=== PATIENT | female | born 1995 | race Caucasian/White ===

== ENCOUNTER 2021-07-16 08:22 | Outpatient (CLI) | payer BC, SELFPAY ==
--- NOTE | 2021-07-16 08:49 | XR_ITS ---
WS: [id number] KUB, AP view, 07/16/2021 Clinical Data: CHRONIC CONSTIPATION/ABD BLOATING/ABDOMINAL PAIN Comparison: None. Findings: No abnormal intraabdominal masses or calcifications are seen. There is no dilatated small bowel or ev idence of obstruction. There is an IUD in the region of the uterus. There is fecal material throughout the colon. XR/XR KUB [id number] Impression: Negative KUB.
== END 2021-07-16 08:23 | disposition home or self-care (01) ==
PROVIDERS: PCP Electrodiagnostic Medicine; Visit Provider Electrodiagnostic Medicine
DX: K59.00 Constipation, unspecified (principal); R14.0 Abdominal distension (gaseous)
CPT/HCPCS: 74018

== ENCOUNTER 2024-03-08 03:21 | Observation (INO) | payer OTHER, SELFPAY ==
[2024-03-08] VITALS (13 sets, daily range): BP systolic 105–139; BP diastolic 70–106; PULSE 54–97; RESP 15–20; TEMP 36.4–36.6; O2SAT 91–98; BMI 28.4
--- NOTE | 2024-03-08 03:43 | CTR_ITS ---
PROCEDURE INFORMATION: Exam: CT Abdomen And Pelvis With Contrast Exam date and time: 03/08/2024 5:02 AM Age: 29 years old Clinical indication: Abdominal pain; Localized; Right lower quadrant (rlq) TECHNIQUE: Imaging protocol: Computed tomography of the abdomen and pelvis with contrast. Radiation optimization: All CT scans at this facility use at least one of these dose optimization techniques: automated exposure control; mA and/or kV adjustment per patient size (includes targeted exams where dose is matched to clinical indication); or iterative reconstruction. Contrast material: OMNI 350; Contrast volume: 100 ml; Contrast route: INTRAVENOUS (IV); COMPARISON: CR XR KUB [id number] 07/16/2021 9:06 AM RADIATION DOSE METRICS: Total DLP (mGy-cm): 579.95 FINDINGS: Lungs: Lung bases are clear as visualized. Liver: Normal. No mass. Gallbladder and biliary ducts: Normal. No calcified stones. No ductal dilation. Pancreas: Low-density focus is noted involving the head of the pancreas measuring 7.6 mm in size. This may represent a pancreatic cyst however, this is somewhat unusual in a patient of this age and nonemergent MRI with without IV contrast pancreatic protocol would be recommended. Spleen: Normal. No splenomegaly. Adrenal glands: Normal. No mass. Kidneys and ureters: The right kidney is normal in appearance. The left kidney is atrophic with cortical scarring. No hydronephrosis is appreciated. No renal calculi are identified. Stomach and bowel: There are air-fluid levels involving minimally distended loops of small bowel within the pelvis. This is a nonspecific finding but can be seen with an ileus/enteritis. The cecum is somewhat mobile being within the left midabdomen. The cecum is somewhat distended with air. However, the remainder of the colon is also mildly distended with air and fecal material. While the colon does narrow slightly as the cecum crosses the midline to the left, no definite oral sign or twisting of the mesentery is appreciated. Appendix: No evidence of appendicitis. Intraperitoneal space: Unremarkable. No free air. No significant fluid collection. Vasculature: Unremarkable. No abdominal aortic aneurysm. Lymph nodes: Unremarkable. No enlarged lymph nodes. Urinary bladder: Unremarkable as visualized. Reproductive: Unremarkable as visualized. Bones/joints: Unremarkable. No acute fracture. Soft tissues: There is a small fat filled periumbilical hernia. 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 A cecal volvulus or partial volvulus is possible. Barium enema may be of benefit for further evaluation. 2. Air-fluid levels involving minimally distended loops of small bowel within the pelvis. This is a nonspecific finding but can be seen with an ileus/enteritis. 3. Small low-density lesion involving the head of the pancreas. Please see above comments.
[2024-03-08 03:53] LABS: Basophils # 0.1 10^3/uL (0.0-0.1); Basophils % 0.7 %; Eosinophils # 0.7 10^3/uL (0.0-0.8); Hematocrit 46.3 % (36-47); Lymphocytes # 2.9 10^3/uL (0.8-4.8); Mean Corpuscular HGB Conc 33.3 g/dL (30-55); Mean Corpuscular Volume 87.2 fl (85-98); Mean Platelet Volume 9.8 fL (7.4-10.4); Monocytes # 0.7 10^3/uL (0.2-0.9); Monocytes % 9.1 %; Neutrophils # 3.08 10^3/uL (1.8-7.7); Neutrophils % 41.9 %; Nucleated Red Blood Cells % 0 %; Platelet Count 259 10^3/cmm (157-399); Red Blood Count 5.31 10^6/uL (3.85-5.65); Red Cell Distribution Width 11.9 % (12.1-15.1); White Blood Count 7.34 10^3/uL (3.29-11.43)
[2024-03-08] MEDS: HYDROmorphone 1 mg/mL INJ 1 mL 0.5 MG IVP ×2 (04:00→05:50)
[2024-03-08] MEDS: ondansetron 2 mg/ML SDV 2 mL 4 MG IVP (04:09)
[2024-03-08 04:13] LABS: Alanine Aminotransferase 16 U/L (0-33); Albumin Level 4.1 g/dL (3.5-5.2); Alkaline Phosphatase 107 U/L (35-105); Anion Gap 16.4 (5-19); Aspartate Amino Transferase 16 U/L (0-32); Blood Urea Nitrogen 11 mg/dL (6-20); Calcium 8.7 mg/dL (8.5-10.5); Carbon Dioxide 22 mmol/L (22-29); Chloride 103 mmol/L (98-107); Creatinine Clr Calc Pharmacy 94.1141; Globulin 2.8 g/dL (1.3-4.6); Glomerular Filtration Rate 73.5 mL/min (90-130); Glucose 101 mg/dL (65-115); Lipase 41 U/L (13-60); Osmolality Calculated 286 mOsm/kg (285-295); Potassium 3.4 mmol/L (3.5-5.1); Sodium 138 mmol/L (136-145); Total Bilirubin 0.3 mg/dL (0.15-1.2); Total Protein 6.9 g/dL (6.6-8.7)
--- NOTE | 2024-03-08 04:28 | PC.NURSE ---
Urine specimen delayed at this time due to patient stating that she cannot produce urine specimen, and asking for water. Patient was educated that she needs to remain NPO until test results can come back, and that if unable to produce specimen, she may require straight cath. Patient verbalized understanding and stated that she would try once again to produce specimen.
[2024-03-08 04:35] LABS: HCG, Serum Qual Negative (Negative)
[2024-03-08 04:51] LABS: Charge for UA Resulting for Rev
[2024-03-08 04:54] LABS: Bilirubin Urine Negative (Negative); Blood Urine Negative (Negative); Glucose Urine UA Negative (Normal); Ketones Urine 1+ (Negative); Leukocyte Esterase Urine Trace (Negative); Nitrate Urine Negative (Negative); Protein Urine Negative (Negative); Specific Gravity, Urine 1.015 (1.005-1.030); Urine Appearance Turbid (CLEAR); Urine Color Yellow (Yellow); pH Urine 7.5 (5-7)
[2024-03-08 04:58] LABS: Bacteria Urine 3+ /hpf; Hyaline Casts Urine 0-4 /lpf; RBC Urine 0-2 /hpf (0-2); WBC Urine 0-5 /hpf (0-5)
[2024-03-08 05:03] LABS: Add Urine Culture? No
[2024-03-08] MEDS: iohexol 350 mg/mL 500 mL Btl (per mL) IV (05:14)
--- NOTE | 2024-03-08 05:17 | ED_ITS ---
Documented by User: Lorenzo Almaraz MD 03/08/24 05:20 HPI - Abdominal Pain 2 General: Chief Complaint: Abdominal Pain Stated Complaint: abd pain Time Seen by Provider: 03/08/24 03:29 History of Present Illness: This patient is a 29-year-old white female who presents to the ER complaining of generalized abdominal pain but worse on the right side. She states this started last night after she had a bowel movement. She has had some nausea but no vomiting. Stool is slightly loose. No dysuria or hematuria. Last menstrual period was February 21 and was normal. Her past medical history is significant for ovarian cysts. No past surgical history. Associated Symptoms: Reports nausea Related Data Date of Last Menstrual Period: 02/22/24 Allergies Allergy/AdvReac Type Severity Reaction Status Date / Time No Known Allergies Allergy Verified 03/08/24 03:32 Review of Systems 2 General: Reports: 10 or more systems reviewed and unremarkable except in HPI and below GI: Reports: abdominal pain and nausea [facility] ED 2 Female Reproductive History: Date of last menstrual period: 02/22/24 Physical Exam 2 Narrative: EXAM NARRATIVE: Patient is in moderate distress with episodic spasms of pain. Const: COMMON NORMALS: patient oriented x3 and no limitations GENERAL APPEARANCE: cooperative HENMT: COMMON NORMALS: normocephalic, atraumatic, Normal nasal mucous membranes and turbinates present, moist oral mucous membranes and oropharynx normal HEAD & SCALP: normal to inspection, normocephalic and atraumatic F GIACOMO & SINUS: normal facial exam NOSE: Normal nasal mucous membranes and turbinates present Eye: COMMON NORMALS: Equal, round and reactive pupils present, EOMs intact bilaterally and conjunctivae normal GENERAL EYE: appearance normal, both eyes and all related structures CONJUNCTIVA: Yes conjunctivae normal PUPIL: Yes Equal, round and reactive pupils present Neck/C-Spine: COMMON NORMALS: supple and no JVD Chest: COMMONS NORMALS: normal inspection of the chest Resp: COMMON NORMALS: normal respiratory effort and clear to auscultation bilaterally AUSCULTATION: clear to auscultation bilaterally Cardio: COMMON NORMALS: no JVD, regular rate, regular rhythm, No gallops present (Cardio), No murmurs present (Cardio) and No rub (Cardio) RATE: r egular rate RHYTHM: regular rhythm GI: COMMON NORMALS: Normal to inspection, nondistended, normoactive bowel sounds present and Soft to palpation AUSCULTATION: Yes normoactive bowel sounds PALPATION: Yes Soft to palpation, Yes Tenderness to palpation present (GI) (Generalized tenderness to palpation but worse along the right side of the a), No Guarding due to palpation present (GI) and No Rebound tenderness present : COMMON NORMALS: Yes no CVA tenderness BLADDER/KIDNEY EXAM: Yes no CVA tenderness Back/Pelvis: COMMON NORMALS: no CVA tenderness and thoracic and lumbar spine normal to inspection Extremity: COMMON NORMALS: normal to inspection Neuro: COMMON NORMALS: patient oriented x3 and CN's II-XII intact bilaterally Psych: COMMON NORMALS: mental status grossly normal, Normal thought process present and cooperative THOUGHT PROCESS: Normal thought process present Skin: COMMON NORMALS: no rashes or lesions noted, turgor normal and no jaundice GENERAL SKIN EXAM: no rashes or lesions noted and turgor normal Course 2 Vital Signs: Vital signs: Vital Signs Temperature 97.5 F L 03/08/24 03:27 Pulse Rate 59 L 03/08/24 06:00 Respiratory Rate 18 03/08/24 05:50 Blood Pressure 125/96 03/08/24 06:00 Pulse Oximetry 92 03/08/24 06:00 Oxygen Delivery Me thod Room Air 03/08/24 03:27 MDM - Abdominal Pain Medical Decision Making Patient was given 0.5 mg of Dilaudid IV for her pain and 4 mg of Zofran IV for her nausea. CBC and CMP are normal. test negative. Urinalysis appears to be contaminated. CT scan of the abdomen and pelvis is pending. 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 A cecal volvulus or partial volvulus is possible. Barium enema may be of benefit for further evaluation. 2. Air-fluid levels involving minimally distended loops of small bowel within the pelvis. This is a nonspecific finding but can be seen with an ileus/enteritis. 3. Small low-density lesion involving the head of the pancreas. Please see above comments. ADDENDUM: 03/08/24 0600 COMMENT: THIS REPORT CONTAINS FINDINGS THAT MAY BE CRITICAL TO PATIENT CARE. The exam findings were verbally communicated by me to Dr. Phillips via telephone conference at 5:59 AM CDT on 03/08/2024. The findings were acknowledged and understood. Laboratory Results WBC 7.34 10^3/uL (3.29-11.43) 03/08/24 03:45 RBC 5.31 10^6/uL (3.85-5.65) 03/08/24 03:45 Hgb 15.40 g/dL (11.27-16.99) 03/08/24 03:45 Hct 46.3 % (36-47) 03/08/24 03:45 MCV 87.2 fl (85-98) 03/08/24 03:45 MCH 29.0 pg (27-33) 03/08/24 03:45 MCHC 33.3 g/dL (30-55) 03/08/24 03:45 RDW 11.9 % (12.1-15.1) L 03/08/24 03:45 Plt Count 259 10^3/cmm (157-399) 03/08/24 03:45 MPV 9.8 fL (7.4-10.4) 03/08/24 03:45 Neut % (Auto) 41.9 % 03/08/24 03:45 Lymph % (Auto) 39.0 % 03/08/24 03:45 [place] % (Auto) 9.1 % 03/08/24 03:45 Eos % (Auto) 9.0 % 03/08/24 03:45 Baso % (Auto) 0.7 % 03/08/24 03:45 Neut # (Auto) 3.08 10^3/uL (1.8-7.7) 03/08/24 03:45 Lymph # (Auto) 2.9 10^3/uL (0.8-4.8) 03/08/24 03:45 [place] # (Auto) 0.7 10^3/uL (0.2-0.9) 03/08/24 03:45 Eos # (Auto) 0.7 10^3/uL (0.0-0.8) 03/08/24 03:45 Baso # (Auto) 0.1 10^3/uL (0.0-0.1) 03/08/24 03:45 Nucleated RBC % (auto) 0 % 03/08/24 03:45 Nucleated RBCs # 0.0 /100WBC 03/08/24 03:45 Sodium 138 mmol/L (136-145) 03/08/24 03:45 Potassium 3.4 mmol/L (3.5-5.1) L 03/08/24 03:45 Chloride 103 mmol/L (98-107) 03/08/24 03:45 Carbon Dioxide 22 mmol/L (22-29) 03/08/24 03:45 Anion Gap 16.4 (5-19) 03/08/24 03:45 BUN 11 mg/dL (6-20) 03/08/24 03:45 Creatinine 0.9 mg/dL (0.5-0.9) 03/08/24 03:45 GFR Calculation 73.5 mL/min (90-130) L 03/08/24 03:45 Glucose 101 mg/dL (65-115) 03/08/24 03:45 Calculated Osmolality 286 mOsm/kg (285-295) 03/08/24 03:45 Calcium 8.7 mg/dL (8.5-10.5) 03/08/24 03:45 Total Bilirubin 0.3 mg/dL (0.15-1.2) 03/08/24 03:45 AST 16 U/L (0-32) 03/08/24 03:45 ALT 16 U/L (0-33) 03/08/24 03:45 Alkaline Phosphatase 107 U/L (35-105) H 03/08/24 03:45 Total Protein 6.9 g/dL (6.6-8.7) 03/08/24 03:45 Albumin 4.1 g/dL (3.5-5.2) 03/08/24 03:45 Globulin 2.8 g/dL (1.3-4.6) 03/08/24 03:45 Lipase 41 U/L (13-60) 03/08/24 03:45 HCG, Qual Negative (Negative) 03/08/24 04:27 Urine Color Yellow (Yellow) 03/08/24 04:46 Urine Appearance Turbid (CLEAR) A 03/08/24 04:46 Urine pH 7.5 (5-7) 03/08/24 04:46 Ur Specific [place] 1.015 (1.005-1.030) 03/08/24 04:46 Urine Protein Negative (Negative) 03/08/24 04:46 Urine Glucose (UA) Negative (Normal) 03/08/24 04:46 Urine Ketones 1+ (Negative) H 03/08/24 04:46 Urine Blood Negative (Negative) 03/08/24 04:46 Urine Nitrate Negative (Negative) 03/08/24 04:46 Urine Bilirubin Negative (Negative) 03/08/24 04:46 Urine Urobilinogen 1.0 mg/dL (Negative) 03/08/24 04:46 Ur Leukocyte Esterase Trace (Negative) A 03/08/24 04:46 Urine RBC 0-2 /hpf (0-2) 03/08/24 04:46 Urine WBC 0-5 /hpf (0-5) 03/08/24 04:46 Ur Squamous Epith Cells 11-20 /hpf (0-5) 03/08/24 04:46 Amorphous Sediment Not Reportable 03/08/24 04:46 Urine Bacteria 3+ /hpf (NONE) H 03/08/24 04:46 Hyaline Casts 0-4 /lpf H 03/08/24 04:46 Discharge Plan Discharge Patient Disposition: Admitted As Inpatient Admit Provider: Tino Boss Clinical Impression: Abdominal pain Condition: Stable Coding Level of Care Code ED Worship Leader for Chg Fwd Documented by User: Clint Phillips MD 03/08/24 06:34 HPI - Abdominal Pain 2 General: Chief Complaint: Abdominal Pain Stated Complaint: abd pain Time Seen by Provider: 03/08/24 03:29 Related Data Allergies Allergy/AdvReac Type Severity Reaction Status Date / Time No Known Allergies Allergy Verified 03/08/24 03:32 Course 2 Vital Signs: Vital signs: Vital Signs Temperature 97.5 F L 03/08/24 03:27 Pulse Rate 59 L 03/08/24 06:00 Respiratory Rate 18 03/08/24 05:50 Blood Pressure 125/96 08/28/24 06:00 Pulse Oximetry 92 03/08/24 06:00 Oxygen Delivery Me thod Room Air 03/08/24 03:27 MDM - Abdominal Pain Medical Decision Making Patient was given 0.5 mg of Dilaudid IV for her pain and 4 mg of Zofran IV for her nausea. CBC and CMP are normal. test negative. Urinalysis appears to be contaminated. CT scan of the abdomen and pelvis is pending. Patient presents here with abdominal pain here CT showed a mobile cecum with concern about possible volvulus I did speak to surgeon on-call Dr. 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 A cecal volvulus or partial volvulus is possible. Barium enema may be of benefit for further evaluation. 2. Air-fluid levels involving minimally distended loops of small bowel within the pelvis. This is a nonspecific finding but can be seen with an ileus/enteritis. 3. Small low-density lesion involving the head of the pancreas. Please see above comments. ADDENDUM: 03/08/24 0600 COMMENT: THIS REPORT CONTAINS FINDINGS THAT MAY BE CRITICAL TO PATIENT CARE. The exam findings were verbally communicated by me to Dr. Phillips via telephone conference at 5:59 AM CDT on 03/08/2024. The findings were acknowledged and understood. Laboratory Results WBC 7.34 10^3/uL (3.29-11.43) 03/08/24 03:45 RBC 5.31 10^6/uL (3.85-5.65) 03/08/24 03:45 Hgb 15.40 g/dL (11.27-16.99) 03/08/24 03:45 Hct 46.3 % (36-47) 03/08/24 03:45 MCV 87.2 fl (85-98) 03/08/24 03:45 MCH 29.0 pg (27-33) 03/08/24 03:45 MCHC 33.3 g/dL (30-55) 03/08/24 03:45 RDW 11.9 % (12.1-15.1) L 03/08/24 03:45 Plt Count 259 10^3/cmm (157-399) 03/08/24 03:45 MPV 9.8 fL (7.4-10.4) 03/08/24 03:45 Neut % (Auto) 41.9 % 03/08/24 03:45 Lymph % (Auto) 39.0 % 03/08/24 03:45 [place] % (Auto) 9.1 % 03/08/24 03:45 Eos % (Auto) 9.0 % 03/08/24 03:45 Baso % (Auto) 0.7 % 03/08/24 03:45 Neut # (Auto) 3.08 10^3/uL (1.8-7.7) 03/08/24 03:45 Lymph # (Auto) 2.9 10^3/uL (0.8-4.8) 03/08/24 03:45 [place] # (Auto) 0.7 10^3/uL (0.2-0.9) 03/08/24 03:45 Eos # (Auto) 0.7 10^3/uL (0.0-0.8) 03/08/24 03:45 Baso # (Auto) 0.1 10^3/uL (0.0-0.1) 03/08/24 03:45 Nucleated RBC % (auto) 0 % 03/08/24 03:45 Nucleated RBCs # 0.0 /100WBC 03/08/24 03:45 Sodium 138 mmol/L (136-145) 03/08/24 03:45 Potassium 3.4 mmol/L (3.5-5.1) L 03/08/24 03:45 Chloride 103 mmol/L (98-107) 03/08/24 03:45 Carbon Dioxide 22 mmol/L (22-29) 03/08/24 03:45 Anion Gap 16.4 (5-19) 03/08/24 03:45 BUN 11 mg/dL (6-20) 03/08/24 03:45 Creatinine 0.9 mg/dL (0.5-0.9) 03/08/24 03:45 GFR Calculation 73.5 mL/min (90-130) L 03/08/24 03:45 Glucose 101 mg/dL (65-115) 03/08/24 03:45 Calculated Osmolality 286 mOsm/kg (285-295) 03/08/24 03:45 Calcium 8.7 mg/dL (8.5-10.5) 03/08/24 03:45 Total Bilirubin 0.3 mg/dL (0.15-1.2) 03/08/24 03:45 AST 16 U/L (0-32) 03/08/24 03:45 ALT 16 U/L (0-33) 03/08/24 03:45 Alkaline Phosphatase 107 U/L (35-105) H 03/08/24 03:45 Total Protein 6.9 g/dL (6.6-8.7) 03/08/24 03:45 Albumin 4.1 g/dL (3.5-5.2) 03/08/24 03:45 Globulin 2.8 g/dL (1.3-4.6) 03/08/24 03:45 Lipase 41 U/L (13-60) 03/08/24 03:45 HCG, Qual Negative (Negative) 03/08/24 04:27 Urine Color Yellow (Yellow) 03/08/24 04:46 Urine Appearance Turbid (CLEAR) A 03/08/24 04:46 Urine pH 7.5 (5-7) 03/08/24 04:46 Ur Specific [place] 1.015 (1.005-1.030) 03/08/24 04:46 Urine Protein Negative (Negative) 03/08/24 04:46 Urine Glucose (UA) Negative (Normal) 03/08/24 04:46 Urine Ketones 1+ (Negative) H 03/08/24 04:46 Urine Blood Negative (Negative) 03/08/24 04:46 Urine Nitrate Negative (Negative) 03/08/24 04:46 Urine Bilirubin Negative (Negative) 03/08/24 04:46 Urine Urobilinogen 1.0 mg/dL (Negative) 03/08/24 04:46 Ur Leukocyte Esterase Trace (Negative) A 03/08/24 04:46 Urine RBC 0-2 /hpf (0-2) 03/08/24 04:46 Urine WBC 0-5 /hpf (0-5) 03/08/24 04:46 Ur Squamous Epith Cells 11-20 /hpf (0-5) 03/08/24 04:46 Amorphous Sediment Not Reportable 03/08/24 04:46 Urine Bacteria 3+ /hpf (NONE) H 03/08/24 04:46 Hyaline Casts 0-4 /lpf H 03/08/24 04:46 All radiology interpretation(s) finalized by discharge Discharge Plan Discharge Patient Disposition: Admitted As Inpatient Admit Provider: Tino Boss Clinical Impression: Abdominal pain Condition: Stable Coding Level of Care Code ED Worship Leader for Edu Vargas
--- NOTE | 2024-03-08 06:11 | FL_ITS ---
WS: [id number] Exam: [place] barium enema [id number] Date/Time of Exam: 03/08/2024 6:11 AM Reason For Exam: abd pain Full column barium enema is performed without prior bowel prep. The colon fills to the cecum. Barium could not be refluxed into the terminal ileum. There was no evid ence of colonic obstruction. Moderate amount of retained stool in the colon. Haustral pattern is well -maintained. The cecum is somewhat mobile and lies in the central pelvis. FL/FL barium enema [id number] IMPRESSION: 1. Patent colon without obstruction. 2. Significant retained stool which would preclude detection of a mucosal mass or polyp. 3. 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
[2024-03-08] MEDS: sodium chloride 0.9% 1,000 ML 100 ML IV ×2 (07:08→16:36)
[2024-03-08 07:19] LABS: Lactate (Lactic Acid level) 0.7 mmol/L (0.5-2.2)
[2024-03-08] MEDS: morphine 4 mg/mL SDV 1 mL IVP (08:45)
--- NOTE | 2024-03-08 16:31 | P.HP_ITS ---
Providers/Chief Complaint 2 Admitting Physician: Samson Story DO Primary Care Provider: Daquan Gastelum DO Chief Complaint: abd pain History of Present Illness Yari Steinberg is a 29 year old female hospital with 1 day history of severe right-sided abdominal pain. She reports that the pain came on suddenly and was so severe that she could not walk. She does report nausea but denies any emesis. She reports that she is currently passing some gas and her last bowel movement was yesterday. She never had this pain before. The pain did not radiate. Patient makes pain worse. Nothing made the pain better. She denies any hematochezia and/or melena. CT of the abdomen pelvis showed constipation and the cecum in the midline of the abdomen, concerning for possible cecal volvulus. Barium enema showed there was no cecal volvulus. Review of Systems 2 General: Reports: 10 or more systems reviewed and unremarkable except in HPI and below Medications/Allergies Home Medications Medication Instructions Recorded Confirmed Last Taken Type bupropion HCl 150 mg tablet,12 hr 150 mg PO DAILY 03/08/24 03/08/24 03/07/24 08:00 History sustained-release cholecalciferol (vitamin D3) 125 125 mcg PO DAILY 03/08/24 03/08/24 03/07/24 08:00 History mcg (5,000 unit) tablet (Vitamin D3) vitamin B complex 1 cap PO DAILY 03/08/24 03/08/24 03/07/24 08:00 History Allergies Allergy/AdvReac Type Severity Reaction Status Date / Time No Known Allergies Allergy Verified 03/08/24 03:32 PFSH Acute 2 PFSH: Medical History (Updated 03/09/24 @ 09:34 by Samson Story DO) Mobile cecum Female Reproductive History: Date of last menstrual period: 02/22/24 Vitals/I&O/Wt Last Vital Signs Temp 97.8 F 03/09/24 07:54 Pulse 75 03/09/24 07:54 Resp 18 03/09/24 07:54 BP 122/88 03/09/24 07:54 Pulse Ox 94 03/09/24 07:54 O2 Del Method Room Air 03/09/24 07:54 03/08/24 03/09/24 03/09/24 22:59 06:59 14:59 Intake Total 1096.667 / 6455.069 7134 / 2496.667 Output Total 1200 / 1700 200 / 1900 Balance -103.333 / -182.269 1652 / 596.667 Weight last 48 hrs Weight 171 lb Weight 171 lb Weight 171 lb Physical Exam 2 Narrative: General : Patient is well developed , no acute distress, oriented x3 Head : Normal cephalic, a-traumatic. Ears : Pinnae and external canal are normal. Hearing is normal. Eyes : PERRLA, Sclera and injection are normal. No conjunctival discharge. Nose : Mucous membranes are without erythema. Throat : buccal mucosa is normal, gums are without significant recession or hypertrophy. Lungs : Equal chest rise bilaterally, no use of accessory muscles, trachea is midline. Cor : Rate and rhythm are normal. Abdomen : Soft, ND, right-sided abdominal tenderness no g/r/m Extremities : No edema, no cyanosis or clubbing, dorsalis pedis pulses are present bilaterally, non-tender to palpation of calves. Upper extremities are normal bilaterally. Back : non-tender to palpation, no CVA tenderness. Neuro : CN II - XII intact, Upper and lower extremities have equal and full strength Data 03/08/24 03:45 03/08/24 03:45 A&P Assessment and plan (1) Mobile cecum: (2) Constipation: Plan Hip pain has significantly improved. Appears that due to her multiple cecum syndrome combined with constipation, she likely had a transient large bowel obstruction. Clear liquid diet Magnesium citrate Is going to be important going forward that she manages her constipation. If this happens again in the future we will need to consider possible cecopexy versus right hemicolectomy Will reevaluate tomorrow for possible discharge home Attestations 2 Medical Necessity Statement*: Patient quires 1 night in the hospital for observation. As long as her pain does not get worse, she does not vomit, has a bowel movement and tolerates solid food, she can be discharged home tomorrow Coding Level of Care Code 99001 Diagnoses Mobile cecum Q43.3 Constipation K59.00
[2024-03-08] MEDS: magnesium citrate Btl 296 mL PO (16:51)
[2024-03-09] VITALS: BP 101/64; PULSE 56; RESP 19; TEMP 36.6; O2SAT 97
[2024-03-09] MEDS: sodium chloride 0.9% 1,000 ML 100 ML IV (03:23)
[2024-03-09 04:00] VITALS: BP 104/69; PULSE 60; RESP 18; TEMP 36.6; O2SAT 96
[2024-03-09 07:54] VITALS: BP 122/88; PULSE 75; RESP 18; TEMP 36.6; O2SAT 94
--- NOTE | 2024-03-09 09:36 | P.DS_ITS ---
Discharge Providers Date of Admission: 03/08/24 06:31 Date of Discharge: March 09, 2024 Attending Provider at Admission: Samson Story DO Attending Provider at Discharge: Samson Story DO Primary Care Provider: Daquan Gastelum DO Diagnoses at Discharge Discharge Diagnosis (1) Mobile cecum: Status: Acute (2) Constipation: Status: Acute Reason for Visit Reason for Visit: abd pain Hospital Course Hospital Course This is a very pleasant 29-year-old female who presented to the hospital with severe abdominal pain. She was diagnosed with mobile cecum syndrome and likely had a transient large bowel obstruction. She was tolerating solid food and having bowel movements upon discharge. Physical Exam Narrative: General : Patient is well developed , no acute distress, oriented x3 Head : Normal cephalic, a-traumatic. Ears : Pinnae and external canal are normal. Hearing is normal. Eyes : PERRLA, Sclera and injection are normal. No conjunctival discharge. Nose : Mucous membranes are without erythema. Throat : buccal mucosa is normal, gums are without significant recession or hypertrophy. Lungs : Equal chest rise bilaterally, no use of accessory muscles, trachea is midline. Cor : Rate and rhythm are normal. Abdomen : Soft, ND, NT, no g/r/m Extremities : No edema, no cyanosis or clubbing, dorsalis pedis pulses are present bilaterally, non-tender to palpation of calves. Upper extremities are normal bilaterally. Back : non-tender to palpation, no CVA tenderness. Neuro : CN II - XII intact, Upper and lower extremities have equal and full strength Discharge Data Studies Completed and Pending Completed Studies During Hospitalization Category Date Time Status CT abdomen pelvis w con* [id number] Stat Cat Scan 03/08/24 03:43 Completed [place] barium enema [id number] Stat Exams 03/08/24 06:11 Completed Radiology Impressions Abdomen/Pelvis CT 03/08/24 03:43 IMPRESSION: 1. Mobile cecum. Patient's symptoms potentially could be related to mobile cecum syndrome. A cecal volvulus or partial volvulus is possible. Barium enema may be of benefit for further evaluation. 2. Air-fluid levels involving minimally distended loops of small bowel within the pelvis. This is a nonspecific finding but can be seen with an ileus/enteritis. 3. Small low-density lesion involving the head of the pancreas. Please see above comments. ADDENDUM: 03/08/24 0600 COMMENT: THIS REPORT CONTAINS FINDINGS THAT MAY BE CRITICAL TO PATIENT CARE. The exam findings were verbally communicated by me to Dr. Phillips via telephone conference at 5:59 AM CDT on 03/08/2024. The findings were acknowledged and understood. Barium Enema 03/08/24 06:11 IMPRESSION: 1. Patent colon without obstruction. 2. Significant retained stool which would preclude detection of a mucosal mass or polyp. 3. 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 Laboratory Results WBC 7.34 10^3/uL (3.29-11.43) 03/08/24 03:45 RBC 5.31 10^6/uL (3.85-5.65) 03/08/24 03:45 Hgb 15.40 g/dL (11.27-16.99) 03/08/24 03:45 Hct 46.3 % (36-47) 03/08/24 03:45 MCV 87.2 fl (85-98) 03/08/24 03:45 MCH 29.0 pg (27-33) 03/08/24 03:45 MCHC 33.3 g/dL (30-55) 03/08/24 03:45 RDW 11.9 % (12.1-15.1) L 03/08/24 03:45 Plt Count 259 10^3/cmm (157-399) 03/08/24 03:45 MPV 9.8 fL (7.4-10.4) 03/08/24 03:45 Neut % (Auto) 41.9 % 03/08/24 03:45 Lymph % (Auto) 39.0 % 03/08/24 03:45 [place] % (Auto) 9.1 % 03/08/24 03:45 Eos % (Auto) 9.0 % 03/08/24 03:45 Baso % (Auto) 0.7 % 03/08/24 03:45 Neut # (Auto) 3.08 10^3/uL (1.8-7.7) 03/08/24 03:45 Lymph # (Auto) 2.9 10^3/uL (0.8-4.8) 03/08/24 03:45 [place] # (Auto) 0.7 10^3/uL (0.2-0.9) 03/08/24 03:45 Eos # (Auto) 0.7 10^3/uL (0.0-0.8) 03/08/24 03:45 Baso # (Auto) 0.1 10^3/uL (0.0-0.1) 03/08/24 03:45 Nucleated RBC % (auto) 0 % 03/08/24 03:45 Nucleated RBCs # 0.0 /100WBC 03/08/24 03:45 Sodium 138 mmol/L (136-145) 03/08/24 03:45 Potassium 3.4 mmol/L (3.5-5.1) L 03/08/24 03:45 Chloride 103 mmol/L (98-107) 03/08/24 03:45 Carbon Dioxide 22 mmol/L (22-29) 03/08/24 03:45 Anion Gap 16.4 (5-19) 03/08/24 03:45 BUN 11 mg/dL (6-20) 03/08/24 03:45 Creatinine 0.9 mg/dL (0.5-0.9) 03/08/24 03:45 GFR Calculation 73.5 mL/min (90-130) L 03/08/24 03:45 Glucose 101 mg/dL (65-115) 03/08/24 03:45 Calculated Osmolality 286 mOsm/kg (285-295) 03/08/24 03:45 Lactate 0.7 mmol/L (0.5-2.2) 03/08/24 06:52 Calcium 8.7 mg/dL (8.5-10.5) 03/08/24 03:45 Total Bilirubin 0.3 mg/dL (0.15-1.2) 03/08/24 03:45 AST 16 U/L (0-32) 03/08/24 03:45 ALT 16 U/L (0-33) 03/08/24 03:45 Alkaline Phosphatase 107 U/L (35-105) H 03/08/24 03:45 Total Protein 6.9 g/dL (6.6-8.7) 03/08/24 03:45 Albumin 4.1 g/dL (3.5-5.2) 03/08/24 03:45 Globulin 2.8 g/dL (1.3-4.6) 03/08/24 03:45 Lipase 41 U/L (13-60) 03/08/24 03:45 HCG, Qual Negative (Negative) 03/08/24 04:27 Urine Color Yellow (Yellow) 03/08/24 04:46 Urine Appearance Turbid (CLEAR) A 03/08/24 04:46 Urine pH 7.5 (5-7) 03/08/24 04:46 Ur Specific [place] 1.015 (1.005-1.030) 03/08/24 04:46 Urine Protein Negative (Negative) 03/08/24 04:46 Urine Glucose (UA) Negative (Normal) 03/08/24 04:46 Urine Ketones 1+ (Negative) H 03/08/24 04:46 Urine Blood Negative (Negative) 03/08/24 04:46 Urine Nitrate Negative (Negative) 03/08/24 04:46 Urine Bilirubin Negative (Negative) 03/08/24 04:46 Urine Urobilinogen 1.0 mg/dL (Negative) 03/08/24 04:46 Ur Leukocyte Esterase Trace (Negative) A 03/08/24 04:46 Urine RBC 0-2 /hpf (0-2) 03/08/24 04:46 Urine WBC 0-5 /hpf (0-5) 03/08/24 04:46 Ur Squamous Epith Cells 11-20 /hpf (0-5) 03/08/24 04:46 Amorphous Sediment Not Reportable 03/08/24 04:46 Urine Bacteria 3+ /hpf (NONE) H 03/08/24 04:46 Hyaline Casts 0-4 /lpf H 03/08/24 04:46 Procedures Performed None Vitals Last Vital Signs Temp 97.8 F 03/09/24 07:54 Pulse 75 03/09/24 07:54 Resp 18 03/09/24 07:54 BP 122/88 03/09/24 07:54 Pulse Ox 94 03/09/24 07:54 O2 Del Method Room Air 03/09/24 07:54 Discharge Plan Discharge Patient Disposition: Home Condition: Stable Prescriptions: New Miralax 17 gram/dose powder 17 g PO DAILY Qty: 510 0RF Continued bupropion HCl 150 mg Tablet Sustained-Release 12 Hr 150 mg PO DAILY vitamin B complex Capsule 1 cap PO DAILY Vitamin D3 125 mcg (5,000 unit) Tablet 125 mcg PO DAILY Discharge Orders: Discharge Order (Routine); Ordered 03/09/24 Ordered By: Samson Story Referrals: Daquan Gastelum DO [Primary Care Provider] - 4-7 days Discharge Diet: Advance as tolerated Discharge Activity: Resume usual activity Patient Instructions: Opioid Safety Activity Restrictions/Additional Instructions: no restrictions Discharge Attestations Time Spent in Discharge Care*: less than 30 min Quality Metrics Clinical Quality Measures [ No reported AMI, CVA or VTE this stay] Coding Level of Care Code Acute Code for Chg Fwd Diagnoses Mobile cecum Q43.3 Constipation K59.00
[2024-03-09 11:00] VITALS: BP 120/82; PULSE 55; RESP 18; TEMP 36.6; O2SAT 99
--- NOTE | 2024-03-09 11:27 | PC.NURSE ---
Discharge pending on how pt tolerates soft GI diet for lunch.
[2024-03-09 13:14] VITALS: BP 120/82; PULSE 55; RESP 18; TEMP 36.6; O2SAT 99
== END 2024-03-09 13:14 | disposition home or self-care (01) ==
LOC: ER 05:20 → MEDSURG 06:28
PROVIDERS: Emergency Medicine; Admitting Provider Surgery; Emergency Provider Emergency Medicine; PCP Electrodiagnostic Medicine; Visit Provider Surgery
DX: Q43.3 Congenital malformations of intestinal fixation (principal); K59.00 Constipation, unspecified
CPT/HCPCS: 36415; 74177; 74270; 80053; 81003; 81015; 83605; 83690; 84703; 85025; 96361; 96374; 96375; 96376; 99285; G0378; J1170; J2270; J2405; J7030; Q9967

== ENCOUNTER 2024-03-29 12:10 | Outpatient (CLI) | payer OTHER, SELFPAY ==
--- NOTE | 2024-03-29 12:15 | MRR_ITS ---
PROCEDURE INFORMATION: Exam: MR Abdomen Without Contrast Exam date and time: 03/29/2024 12:42 PM Age: 29 years old Clinical indication: Condition or disease; Pancreatic condition; Cyst; Additional info: Cyst of pancreas TECHNIQUE: Imaging protocol: Magnetic resonance imaging of the abdomen without contrast. COMPARISON: CT abdomen pelvis w con* [id number] 03/08/2024 5:02 AM FINDINGS: Liver: No mass. Gallbladder and biliary ducts: Unremarkable. No stones. No ductal dilation. Pancreas: Unremarkable. No ductal dilation. Spleen: Unremarkable. No splenomegaly. Small splenule medial to spleen. Adrenal glands: Unremarkable. No mass. Kidneys: Left kidney is again noted to be atrophic with areas of cortical scarring. No hydronephrosis. Stomach and bowel: Visualized stomach and intestines are unremarkable. Intraperitoneal space: No free fluid. Vasculature: No abdominal aortic aneurysm. Lymph nodes: No enlarged nodes. Bones/joints: 8 mm T2 hyperintense cystic focus near the pancreatic head/neck junction, not significantly changed from the prior CT given differences in technique. This lesion is hypointense on T1 weighted images. No central enhancement on postcontrast images, though there appears to be a thin rim of peripheral enhancement. No ductal dilatation. Soft tissues: Unremarkable. MR/MR abdomen wo/w con* [id number] IMPRESSION: Subcentimeter cystic focus there the pancreatic head/neck junction without suspicious features. This may represent a branch duct IPMN, though there is no definite communication with the main pancreatic duct. Differential considerations include a true pancreatic cyst or possibly pseudocyst. Other cystic pancreatic lesions such as mucinous cystadenoma considered unlikely. Reimaging every 1 year for 5 years is recommended. (Reference: Ruth, 2017) REFERENCES: Ruth KANG, et al. Management of Incidental Pancreatic Cysts: A White Paper of the ACR Incidental Findings Committee. J Am Sergei Radiol. 2017;14(7):911-923.
[2024-03-29] MEDS: gadobenate dimeglumine 20 mL vial 16 ML IV (13:46)
== END 2024-03-29 12:11 | disposition home or self-care (01) ==
LOC: RAD 12:12
PROVIDERS: PCP Electrodiagnostic Medicine; Visit Provider Electrodiagnostic Medicine
DX: K86.2 Cyst of pancreas (principal); N26.1 Atrophy of kidney (terminal)
CPT/HCPCS: 74183